=== PATIENT | male | born 1965 | race Caucasian/White ===

== ENCOUNTER 2017-03-24 20:11 | Emergency (ER) | payer OTHER ==
[~2017-03-24] VITALS: Ht 175.3 cm; Wt 75.1 kg
[~2017-03-24 20:11] MED LIST: ATENOLOL25 MG PO; ATENOLOL50 MG PO; ENDOCET 10-3251 EACH PO; FLEXERIL10 MG PO; IMODIUM MS REL1 EACH PO; ISONIAZID,INH300 MG PO; LIPITOR10 MG PO; MORPHINE SULFAT15 M1 PO; MORPHINE SULFAT15 M3 PO; NAPROSYN500 MG PO; PREDNISONE20 MG PO; PRINIVIL20 MG PO; ULTRAM50 MG PO; VITAMIN B CO1 TABLET PO; ZOFRAN ODT4 MG PO
[2017-03-24 21:09] LABS: EOSINOPHIL (%) 0.4 % (0-5); EOSINOPHIL COUNT 0.1 K/uL (0-0.3); HEMATOCRIT 43.1 % (38.0-50.0); IMMATURE GRANULOCYTE (%) 0.3 % (0.0-0.7); INSTRUMENT ABS NEUTROPHIL CT 8.7 K/uL; LYMPHOCYTE COUNT 2.3 K/uL (1.0-2.8); MCH 30.3 PG (29.0-34.0); MCHC 34.6 G/DL (30.0-36.0); MCV 87.6 FL (86-99); MEAN PLAT.VOLUME 8.3 uM^3 (9.0-12.4); MONOCYTE COUNT 0.5 K/uL (0-0.8); NEUTROPHIL (%) 75.1 % (45-76); NEUTROPHIL COUNT 8.7 K/uL (1.8-6.4); PLATELET COUNT 304 K/uL (156-360); RBC DIS.WIDTH-CV 14.6 % (11.8-14.6); RBC DIS.WIDTH-SD 46.8 % (39-53); RED BLOOD COUNT 4.92 M/uL (4.00-5.50); WHITE BLOOD COUNT 11.6 K/uL (4.1-10.2)
[2017-03-24 21:16] LABS: CHLORIDE 105 mEq/L (99-109); POTASSIUM 3.5 mEq/L (3.7-5.4); SODIUM 139 mEq/L (136-147)
[2017-03-24 21:19] LABS: GLUCOSE 139 mg/dL (70-99)
[2017-03-24 21:20] LABS: ANION GAP 9 MEQ/L (2-14); TOTAL BILIRUBIN 0.4 mg/dL (0.0-1.0)
[2017-03-24 21:22] LABS: ALKALINE PHOSPHATASE 90 IU/L (3-129); GFR ESTIMATE (CALCULATED) > 59 mL/min/
[2017-03-24 21:23] LABS: UREA NITROGEN (BUN) 11 mg/dL (9-23)
[2017-03-24 22:36] LABS: ADD MIUA? NO; BILIRUBIN NEGATIVE; BLOOD NEGATIVE; COLOR STRAW ((YELLOW)); GLUCOSE (STRIP) NEGATIVE; KETONES NEGATIVE; LEUKOCYTES NEGATIVE; NITRITE NEGATIVE; PROTEIN (STRIP) NEGATIVE; SPECIFIC GRAVITY 1.038 (1.000-1.030); UCUL ADDED? NO; UROBILINOGEN 0.2 MG/DL (0.2-1.0)
[2017-03-25 00:21] VITALS: BP 158/105
== END 2017-03-25 00:22 | disposition home or self-care (01) ==
LOC: RME 20:11 → EME 20:11 → RME 03-25 00:22
PROVIDERS: Physician Assistant
DX: S30.1XXA Contusion of abdominal wall, initial encounter (principal); W11.XXXA Fall on and from ladder, initial encounter; I10 Essential (primary) hypertension; F17.210 Nicotine dependence, cigarettes, uncomplicated; G89.29 Other chronic pain
CPT/HCPCS: 74177; 80053; 81003; 85025; 99281; 99284; J3010; J7030

== ENCOUNTER 2017-04-02 16:48 | Emergency (ER) | payer OTHER ==
[~2017-04-02] VITALS: Ht 175.3 cm; Wt 75.1 kg
[2017-04-02] MEDS ORDERED: VALIUM5 MG PO (17:44)
[2017-04-02] MEDS ORDERED: PREDNISONE10 MG PO (17:44)
[2017-04-02] MEDS ORDERED: ULTRAM50 MG PO (17:44)
[2017-04-02 17:51] VITALS: BP 161/104
== END 2017-04-02 17:52 | disposition home or self-care (01) ==
LOC: EME 16:48 → EXP 16:48
DX: M54.12 Radiculopathy, cervical region (principal); W11.XXXA Fall on and from ladder, initial encounter; Z98.1 Arthrodesis status; F17.200 Nicotine dependence, unspecified, uncomplicated
CPT/HCPCS: 72040; 99281; 99284; J1100

== ENCOUNTER 2017-04-08 19:42 | Emergency (ER) | payer OTHER ==
[~2017-04-08] VITALS: Ht 175.3 cm; Wt 74.8 kg
[~2017-04-08 19:42] MED LIST changes: +PREDNISONE10 MG PO; +VALIUM5 MG PO
[2017-04-08 19:46] VITALS: BP 140/95
[2017-04-08] MEDS ORDERED: TRAMADOL HCL50 MG PO (21:31)
[2017-04-08] MEDS ORDERED: FLEXERIL5 MG PO (21:31)
== END 2017-04-08 21:52 | disposition home or self-care (01) ==
LOC: EME 19:42
DX: M54.2 Cervicalgia (principal)
CPT/HCPCS: 99281; 99284

== ENCOUNTER 2018-01-19 12:35 | Inpatient (IN) | payer OTHER ==
[~2018-01-19] VITALS: Ht 175.3 cm; Wt 74.3 kg
[~2018-01-19 12:35] MED LIST changes: +FLEXERIL5 MG PO; +TRAMADOL HCL50 MG PO
[2018-01-19] MEDS ORDERED: OXYCODONE HCL5 MG PO (13:10)
[2018-01-19] MEDS ORDERED: PRILOSEC20 MG PO (13:11)
[2018-01-19 14:59] LABS: BASOPHIL (%) 0.3 % (0-1); EOSINOPHIL (%) 0 % (0-5); HEMATOCRIT 47.9 % (38.0-50.0); IMMATURE GRANULOCYTE (%) 0.5 % (0.0-0.7); LYMPHOCYTE COUNT 0.7 K/uL (1.0-2.8); MCH 30.6 PG (29.0-34.0); MCHC 35.5 G/DL (30.0-36.0); MCV 86.3 FL (86-99); MONOCYTE (%) 6.1 % (3-12); MONOCYTE COUNT 0.5 K/uL (0-0.8); NEUTROPHIL (%) 85.1 % (45-76); NEUTROPHIL COUNT 7.5 K/uL (1.8-6.4); PLATELET COUNT 227 K/uL (156-360); RBC DIS.WIDTH-SD 44.5 % (39-53); RED BLOOD COUNT 5.55 M/uL (4.00-5.50); WHITE BLOOD COUNT 8.8 K/uL (4.1-10.2)
[2018-01-19 15:10] LABS: ALBUMIN 4.3 g/dL (3.2-4.8); CHLORIDE 100 mEq/L (99-109); POTASSIUM 4.9 mEq/L (3.7-5.4); SODIUM 135 mEq/L (136-147)
[2018-01-19 15:12] LABS: GLUCOSE 107 mg/dL (70-99)
[2018-01-19 15:14] LABS: TOTAL BILIRUBIN 0.4 mg/dL (0.0-1.0)
[2018-01-19 15:16] LABS: ALKALINE PHOSPHATASE 102 IU/L (3-129); CREATININE 0.8 mg/dL (0.6-1.3); GFR ESTIMATE (CALCULATED) > 59 mL/min/ (58.99-99999)
[2018-01-19 15:17] LABS: UREA NITROGEN (BUN) 13 mg/dL (9-23)
[2018-01-19 15:18] LABS: AST (GOT) 70 IU/L (2-34)
[2018-01-19 15:19] LABS: ALT (GPT) 55 IU/L (3-49)
[2018-01-19 15:57] LABS: APPEARANCE CLEAR ((CLEAR)); BILIRUBIN NEGATIVE; BLOOD MODERATE; COLOR YELLOW ((YELLOW)); GLUCOSE (STRIP) NEGATIVE; KETONES 5; LEUKOCYTES NEGATIVE; NITRITE NEGATIVE; PROTEIN (STRIP) 30; SPECIFIC GRAVITY 1.014 (1.000-1.030); UROBILINOGEN 0.2 MG/DL (0.2-1.0)
[2018-01-19 16:08] LABS: BACTERIA RARE /HPF; EPITHELIAL CELLS RARE /HPF; HYALINE CASTS 0-5 /LPF; MUCUS TRACE /LPF; UCUL ADDED? NO; WHITE BLOOD CELLS 0-5 /HPF (0-5)
[2018-01-19] MEDS ORDERED: LISINOPRIL2.5 MG PO (16:32)
[2018-01-19] MEDS ORDERED: ERGOCALCIF50000 UNIT PO (16:33)
[2018-01-19] MEDS ORDERED: ATENOLOL25 MG PO (16:34)
[2018-01-19] MEDS ORDERED: TYLENOL COLD-F240 ML PO (16:40)
[2018-01-19 18:26] VITALS: BP 135/87
[2018-01-19 18:55] VITALS: BP 141/68
[2018-01-19 23:12] VITALS: BP 136/72
[2018-01-20 03:46] VITALS: BP 138/75
[2018-01-20 06:17] LABS: BASOPHIL (%) 0.3 % (0-1); EOSINOPHIL (%) 0 % (0-5); HEMATOCRIT 41.7 % (38.0-50.0); IMMATURE GRANULOCYTE (%) 0.4 % (0.0-0.7); LYMPHOCYTE COUNT 0.7 K/uL (1.0-2.8); MCH 29.8 PG (29.0-34.0); MCHC 34.3 G/DL (30.0-36.0); MCV 86.9 FL (86-99); MONOCYTE (%) 7.3 % (3-12); MONOCYTE COUNT 0.7 K/uL (0-0.8); NEUTROPHIL COUNT 8.6 K/uL (1.8-6.4); PLATELET COUNT 193 K/uL (156-360); RBC DIS.WIDTH-SD 45.1 % (39-53); WHITE BLOOD COUNT 10.1 K/uL (4.1-10.2)
[2018-01-20 06:36] LABS: ALBUMIN 3.6 G/DL (3.2-4.8); ALKALINE PHOSPHATASE 79 IU/L (3-129); ALT (GPT) 35 IU/L (3-49); AST (GOT) 48 IU/L (2-34); CHLORIDE 100 MEQ/L (99-109); CREATININE 0.7 MG/DL (0.6-1.3); GFR ESTIMATE (CALCULATED) > 59 mL/min/ (58.99-99999); GLUCOSE 111 mg/dL (70-99); POTASSIUM 4.2 MEQ/L (3.7-5.4); SODIUM 131 MEQ/L (136-147); TOTAL BILIRUBIN 0.6 MG/DL (0.0-1.0); UREA NITROGEN (BUN) 10 mg/dL (9-23)
[2018-01-20 06:40] LABS: HEMOGLOBIN 14.3 G/DL (12.5-16.6)
[2018-01-20 07:41] VITALS: BP 135/71
[2018-01-20 11:18] VITALS: BP 150/86
[2018-01-20 15:43] VITALS: BP 97/55
[2018-01-20 20:07] VITALS: BP 99/58
[2018-01-20 23:05] VITALS: BP 98/64
[2018-01-21 03:35] VITALS: BP 126/62
[2018-01-21 07:25] VITALS: BP 132/78
[2018-01-21 11:43] LABS: C-REACTIVE PROTEIN 111.8 MG/L (0-10); HDL CHOLESTEROL 29 MG/DL (Desirable>=40); LDL CHOLESTEROL 111 mg/dL (Desirable<100); NON-HDL CHOLESTEROL 144 mg/dL (Desirable<160); TOTAL CHOLESTEROL 173 mg/dL (Desirable<200); TRIGLYCERIDES 164 MG/DL (Normal: <150)
[2018-01-21 15:48] VITALS: BP 95/61
[2018-01-21 23:42] VITALS: BP 111/62
[2018-01-22 08:57] VITALS: BP 128/71
[2018-01-22] MEDS ORDERED: PRAVACHOL10 MG PO (13:31)
[2018-01-26 14:36] LABS: ACTIVATED PROTEIN C RESIST+ 4.3 ratio (>=2.1); DRVVT Mixing Study Interp Not Indicated (()); FACTOR VIII ACTIVITY+ 219 % (50-180); PROTEIN C FUNCTIONAL ACTIVITY+ 135 % (70-180); PTT-LA 48 sec (<=40); Protein S, Free 96 % normal (57-171); Thrombosis Consult Level Limited (()); dRVVT Screen 36 sec (<=45)
[2018-01-27 14:30] LABS: ANTITHROMBIN III ACTIVITY+ 107 % activi (80-120)
== END 2018-01-22 14:07 | disposition home or self-care (01) | DRG 871 ==
LOC: EME 12:35 → EDOF 16:30 → ENRESERV 16:56 → 2EAST 18:04
PROVIDERS: Emergency Medicine; Internal Medicine; Specialist
DX: A41.9 Sepsis, unspecified organism (principal); K52.9 Noninfective gastroenteritis and colitis, unspecified; I63.40 Cerebral infarction due to embolism of unspecified cerebral artery; E87.1 Hypo-osmolality and hyponatremia; K72.90 Hepatic failure, unspecified without coma; I10 Essential (primary) hypertension; E78.5 Hyperlipidemia, unspecified; E53.8 Deficiency of other specified B group vitamins; E55.9 Vitamin D deficiency, unspecified; M19.90 Unspecified osteoarthritis, unspecified site; G47.00 Insomnia, unspecified; M51.9 Unspecified thoracic, thoracolumbar and lumbosacral intervertebral disc disorder; M50.90 Cervical disc disorder, unspecified, unspecified cervical region; G89.4 Chronic pain syndrome; M54.5 Low back pain; M25.552 Pain in left hip; F98.8 Other specified behavioral and emotional disorders with onset usually occurring in childhood and adolescence; F17.200 Nicotine dependence, unspecified, uncomplicated
CPT/HCPCS: 70450; 70553; 71046; 80053; 80061; 81003; 81240 90; 83090 90; 83605; 85025; 85240 90; 85300 90; 85303 90; 85305 90; 85306 90; 85307 90; 85613 90; 85651; 85730 90; 86140; 86146 90; 86147 90; 87040; 93306; 93880; 99281; 99285; J0780; J1200; J1644; J2405; J2543; J7030; J7050